=== PATIENT | male | born 1955 | race Caucasian/White ===

== ENCOUNTER 2024-10-26 07:49 | Emergency (ER) | payer MEDICARE ==
[~2024-10-26] VITALS: Ht 172.7 cm; Wt 104.8 kg
--- NOTE | 2024-10-26 08:05 | NUR ---
EN-ROUTE TO CT SCAN
--- NOTE | 2024-10-26 08:12 | NUR ---
JUST RETURNED FROM CT SCAN
--- NOTE | 2024-10-26 08:15 | ERN ---
General Chief Complaint: Slurred Speech Stated Complaint: SLURRED SPEECH AT 0630 Time Seen by MD: 07:52 Source: patient, family History of Present Illness Initial Comments PATIENT IS A 69-YEAR-OLD MALE COMING IN TO BE EVALUATED FOR SLURRED SPEECH. PER PATIENT FELL ASLEEP BUT CENTER O'CLOCK IN A GOOD STATE OF MIND. PER PATIENT HE HAS BEEN GETTING UP TO GO TO THE RESTROOM SEVERAL TIMES IN HIS STATES HE WAS VERY TIRED THIS IS WHY HE HAD THESE SYMPTOMS. BUT STATES THAT HE WAS RELUCTANT TO COME TO THE HOSPITAL. HE HAD AN EPISODE WHERE HE HAD SLURRED SPEECH AT 6:30 A.M. WHICH IMPROVED BUT DID NOTICED A MILD RIGHT-SIDED WEAKNESS IN HIS FACE. Allergies: Coded Allergies: Penicillins (Unverified Allergy, Unknown, 10/26/24) Past Medical History Past Medical History: A-Fib, Heart Disease, Hypertension Past Surgical History: Other Surgical History Other: BILATERAL KNEES ROS Dictation CONSTITUTIONAL: NO CHILLS, NO FEVER, NO WEAKNESS, NO DIAPHORESIS, NO MALAISE. HEAD/FACE: NO SIGNS OF TRAUMA. EENT: NO EYE PAIN, NO BLURRED VISION, NO TEARING, NO DOUBLE VISION, NO EAR PAIN, NO EAR DISCHARGE, NO NOSE PAIN, NO NASAL CONGESTION, NO THROAT PAIN, NO THROAT SWELLING, NO MOUTH PAIN. RESPIRATORY: NO COUGH, NO ORTHOPNEA, NO SOB, NO STRIDOR, NO WHEEZING. CARDIOVASCULAR: NO CHEST PAIN, NO EDEMA, NO PALPITATIONS, NO SYNCOPE. GASTROINTESTINAL/ABDOMINAL: NO ABDOMINAL PAIN, NO CONSTIPATION, NO DIARRHEA, NO NAUSEA, NO VOMITING. GENITOURINARY: NO ABNORMAL DISCHARGE, NO DYSURIA, NO FREQUENT URINATION, NO HEMATURIA. NO COMPLAINTS OF PAIN IN THE GENITALS. MUSCULOSKELETAL: NO BACK PAIN, NO GOUT, NO JOINT PAIN, NO JOINT SWELLING, NO MUSCLE PAIN, NO MUSCLE STIFFNESS, NO NECK PAIN. INTEGUMENTARY: NO CHANGE IN COLOR, NO CHANGE IN HAIR/NAILS, NO DRYNESS, NO LESION, NO LUMPS, NO RASH. NEUROLOGICAL/PSYCH: NO ANXIETY, NOT DEPRESSED, NO EMOTIONAL PROBLEM, NO HEADACHE, NO NUMBNESS, NO PRE-EXISTING DEFICIT, NO HISTORY OF SEIZURES, NO TREMORS, NO WEAKNESS. HEMATOLOGIC/LYMPHATIC: NOT ANEMIC, NO HISTORY OF BLOOD CLOTS, NO APPARENT BLEEDING, NO BRUISING, GLANDS NOT SWOLLEN. ALL SYSTEMS NEGATIVE, EXCEPT NOTED. Physical Exam Physical Exam Dictation VITAL SIGNS: REVIEWED. GENERAL APPEARANCE: ALERT, ORIENTED X3, NO ACUTE DISTRESS, OBESE. HEAD AND FACE: NON-TRAUMATIC. EYES: PERRL, PINK CONJUNCTIVAS, EYELID NO TRAUMA, ANTERIOR CHAMBER CLEAR. EARS: PINNAS INTACT AND NO SIGNS OF TRAUMA OR ERYTHEMA. EAR CANALS CLEAR AND NO DISCHARGE. TMS NO ERYTHEMA. NOSE: NO DISCHARGE, NO BLEEDING. OROPHARYNX: MOUTH NORMAL, TEETH NO CARIES, TONGUE PINK. PHARYNX CLEAR, NO ERYTHEMA. TONSILS NO EXUDATES, NO ABSCESSES NOTED. MUCOUS MEMBRANE MOIST. NECK: SUPPLE, NON-TENDER, NO THYROMEGALY, NO MASSES, NO JVD, NO BRUITS. BREAST: DEFERRED. CHEST: NO TENDERNESS, NO CREPITUS, NO PARADOXICAL MOVEMENT, NO RETRACTIONS. LUNGS: CLEAR, WELL-VENTILATED, SYMMETRIC, NO RALES, NO WHEEZING, NO RHONCHI, NO STRIDOR, GOOD BREATH SOUNDS BILATERALLY. HEART: REGULAR RATE, REGULAR RHYTHM, NO MURMUR, NO GALLOPS. VASCULAR: NO PERIPHERAL EDEMA. ABDOMEN: SOFT, POSITIVE BOWEL SOUNDS, NONDISTENDED, NO GUARDING, NONTENDER, NO REBOUND, NO MASSES NO HEPATOMEGALY, NO SPLENOMEGALY, NO WEST'S SIGN, NO HERNIAS. RECTAL: DEFERRED. GENITAL: DEFERRED. NEUROLOGICAL: NORMAL SPEECH, GROSS MOTOR FUNCTION INTACT, GROSS SENSORY FUNCTION INTACT. MUSCULOSKELETAL: NECK NONTENDER, FULL RANGE OF MOTION, BACK NONTENDER, FULL RANGE OF MOTION. EXTREMITIES: NONTENDER, FULL RANGE OF MOTION. SKIN: COLOR PINK, DRY, NO TURGOR, NO RASH, NO LACERATIONS, NO ABRASIONS, NO CONTUSIONS. LYMPHATICS: DEFERRED. Results Laboratory and Microbiology Lab and Micro Result Laboratory Tests Test 10/26/24 08:15 10/26/24 08:42 Urine Color COLORLESS (YELLOW) Urine Appearance CLEAR (CLEAR) Urine pH 7.0 (5.0-8.0) Urine Specific [place] 1.003 (1.001-1.031) Urine Protein 100 mg/dL (NEGATIVE) H Urine Glucose (UA) NEGATIVE mg/dL (NEGATIVE) Urine Ketones NEGATIVE mg/dL (NEGATIVE) Urine Occult Blood NEGATIVE (NEGATIVE) Urine Nitrate NEGATIVE (NEGATIVE) Urine Bilirubin NEGATIVE mg/dL (NEGATIVE) Urine Urobilinogen 0.2 mg/dL (0.2-1.0) Urine Leukocyte Esterase NEGATIVE Lizabeth/uL Urine RBC None /HPF (0-1) Urine WBC 0-1 /HPF (0-1) Urine Bacteria None /HPF (None Seen) White Blood Count 5.5 K/uL (4.8-10.8) Red Blood Count 5.61 MIL/uL (4.50-6.20) Hemoglobin 18.6 g/dL (14.0-18.0) H Hematocrit 54.6 % (42-54) H Mean Corpuscular Volume 97.3 fL (79-99) Mean Corpuscular Hemoglobin 33.2 pg (27.0-33.0) H Mean Corpuscular Hemoglobin Concent 34.1 g/dL (32.0-36.0) Red Cell Distribution Width 14.2 % (11.0-15.5) Platelet Count 147 K/uL (130-400) Mean Platelet Volume 11.1 fL (7.5-10.5) H Immature Granulocyte % (Auto) 0.4 % (0-1) Neutrophils (%) (Auto) 61.6 % (40.0-77.0) Lymphocytes (%) (Auto) 19.8 % (21.0-51.0) L Monocytes (%) (Auto) 11.2 % (3.0-13.0) Eosinophils (%) (Auto) 5.9 % (0.0-8.0) Basophils (%) (Auto) 1.1 % (0.0-5.0) Neutrophils # (Auto) 3.4 K/uL (1.8-7.7) Lymphocytes # (Auto) 1.1 K/uL (1.0-4.8) Monocytes # (Auto) 0.6 K/uL (0.1-1.0) Eosinophils # (Auto) 0.32 K/uL (0.00-0.70) Basophils # (Auto) 0.06 K/uL (0.00-0.20) Absolute Immature Granulocyte (auto 0.02 K/uL (0-1) Nucleated Red Blood Cells 0.0 % (0.0-0.19) Prothrombin Time 11.1 SEC (9.6-11.6) Prothromb Time International Ratio 1.05 (0.85-1.15) Activated Partial Thromboplast Time 27.1 SEC (26.3-35.5) Sodium Level 139 mmol/L (136-145) Potassium Level 3.6 mmol/L (3.5-5.1) Chloride Level 102 mmol/L (101-111) Carbon Dioxide Level 33 mmol/L (21-32) H Blood Urea Nitrogen 14 mg/dL (7-18) Creatinine 1.0 mg/dL (0.5-1.3) Glomerular Filtration Rate Calc 81 mL/min (>90) Random Glucose 107 mg/dL (70-105) H Total Calcium 9.1 mg/dL (8.5-10.1) Total Creatine Kinase 114 U/L (21-232) Troponin I High Sensitivity 7 ng/L (4-75) B-Type Natriuretic Peptide 150 pg/mL (0-100) H LDL Cholesterol 134 mg/dL (0-99) H Labs Reviewed?: Yes EKG/XRAY/US/CT/MRI X-RAY Comment [id number] [address] IMAGING REPORT Signed PATIENT: DENA MILLER MR#: [id number] : 1955 SEX: M AGE: 69 LOCATION: ED ORDER 6 STATUS: REG HOSPITAL REPORT#: [id number] SERVICE [id number] REASON: WEAKNESS ORDERING PHYSICIAN: DELVIS AVILES MD PROCEDURE: CXR1VW - CHEST 1VW CHEST 1VW HISTORY: CVA COMPARISON: None FINDINGS: A frontal projection of the chest was obtained. Mild bilateral pulmonary infiltrates are seen may be related to mild pulmonary vascular congestion with possible superimposed pneumonitis. The heart is enlarged. Degenerative changes are seen. No evidence of aortic calcification is seen. IMPRESSION: 1. Mild bilateral pulmonary infiltrates are seen may be related to mild pulmonary vascular congestion with possible superimposed pneumonitis. DICTATED BY: EMLIZA CARRENO MD DATE: 10/26/24941 ELECTRONICALLY SIGNED BY: MELIZA CARRENO MD DATE: 10/26/[address] Scan Comment IMAGING REPORT Signed PATIENT: DENA MILLER MR#: [id number] : 1955 SEX: M AGE: 69 LOCATION: EDH ORDER 6 STATUS: REG ER REPORT#: [id number] SERVICE 5 REASON: RIGHT FACIAL WEAKNESS ORDERING PHYSICIAN: DELVIS AVILES MD PROCEDURE: HEAD WO - CT HEAD/BRAIN W/O CONTRAST CT HEAD/BRAIN W/O CONTRAST HISTORY: Code stroke COMPARISON: None TECHNIQUE: Multiple sequential axial images of the head were obtained from the base of the skull through vertex. Patient was not given contrast through intravenous route. FINDINGS: The ventricles and extraventricular CSF spaces are dilated consistent with cerebral atrophy. Nonspecific white matter changes seen. There is right maxillary sinus polyp versus mucus retention cyst. There is no midline shift, mass effect or herniation. No acute intracranial bleed is seen. Visualized portion of the paranasal sinuses are grossly within normal limits. IMPRESSION: 1. No acute intracranial bleed is seen. CT was performed with one or more following dose reduction techniques: automated exposure control, adjustment of the mA and kv according to patient's size, or use of a iterative reconstruction technique. DICTATED BY: MELIZA CARRENO MD DATE: 10/26/24836 ELECTRONICALLY SIGNED BY: MELIZA CARRENO MD DATE: 10/26/24840 [facility] MDM: DIFFERENTIAL DIAGNOSIS: TIA, CVA, RATIONALE: TESTS CONSIDERED AND ORDERED SECONDARY TO SHARED DECISION MAKING INCLUDE: LABS, ECG AND RADIOLOGY PREVIOUS OUTSIDE RECORDS REVIEWED: OLD ER VISITS. RISK OF COMPLICATION AND/OR MORBIDITY OR MORTALITY OF PATIENT MANAGEMENT: NONE MEDICATIONS-PER MEDICATION RECONCILIATION NEED FOR HOSPITALIZATION: PATIENT DOES MEET CRITERIA FOR HOSPITALIZATION. NEED FOR EMERGENCY MAJOR/MINOR SURGERY: NO THERE ARE NO SOCIAL CONCERNS WITH THIS PATIENT. PRESCRIPTION DRUG MANAGEMENT PRESCRIPTIONS WILL INCLUDE SYMPTOMATIC CARE PATIENT'S PRIOR EXTERNAL MEDICAL RECORDS FROM OTHER ER VISITS WERE REVIEWED BY ME INDICATED. PRIOR TESTING AND RESULTS FROM PREVIOUS VISITS WERE REVIEWED. PRIOR TESTS WERE TAKEN INTO ACCOUNT WITH MEDICAL DECISION MAKING AND RESOURCE UTILIZATION, INDEPENDENT HISTORIAN/HISTORIANS WERE USED TO OBTAIN COMPLETE MEDIC AL HISTORY. I INDEPENDENTLY INTERPRETED THE TEST THAT WERE PERFORMED, RESULTS WERE REVIEWED BY ME AND CONSIDERED FINDINGS ON RADIOLOGY IF ORDERED. MEDICAL MANAGEMENT AND EXAMINATION INTERPRETATION DISCUSSIONS WERE HAD BY ME WITH OTHER QUALIFIED HEALTHCARE PROFESSIONALS INDICATED FOR THE PATIENT'S CARE. Patient is a 69-year-old male coming in to be evaluated for neurological symptoms. CT did not disclose acute findings in the brain. I advised patient that he needs to be transferred to center neurologist could intervene as we are going to go to with our teleneurologist recommendation which was two admit the patient for further workup. Patient refused states he did not know why he was brought in the 1st place because he was feeling fine. Despite my efforts patient states he does not want to stay and wishes to leave patient is neurologically intact nose reason that and at bedside confirms that patient is at baseline. Patient will leave against medical advice I also recommended if symptoms resurface or he needs a emergent medical evaluation to seek help with the nearest ER. He agrees. ED Course Orders Procedure Category Date Status Time Cbc With Differential LAB 10/26/24 Complete 07:56 Prothrombin Time With LAB 10/26/24 Complete INR 07:56 Partial LAB 10/26/24 Complete Thromboplastin Time 07:56 Ct Head/Brain W/O CT 10/26/24 Resulted Contrast 07:56 Chest 1vw RAD 10/26/24 Resulted 07:56 12 Lead Ekg Tracing- EKG 10/26/24 Logged Technical 07:56 Creatine Kinase, Total LAB 10/26/24 Complete 07:56 Ldl Direct LAB 10/26/24 Complete 07:56 Troponin I High LAB 10/26/24 Complete Sensitivity 07:56 Urinalysis Profile LAB 10/26/24 Complete 07:56 B-Type Natriuretic LAB 10/26/24 Complete Peptide 07:56 Bedside Glucose CPOE 10/26/24 Transmitted Fingerstick 07:56 Basic Metabolic Panel LAB 10/26/24 Complete 07:56 Vital Signs Date Time Temp Pulse Resp B/P (MAP) Pulse Ox O2 Delivery O2 Flow Rate FiO2 10/26/24 10:01 97.9 63 20 143/94 97 Room Air* 0 21 10/26/24 08:42 68 18 197/110 98 Room Air* 0 21 10/26/24 07:58 78 17 187/120 96 Room Air* 0 21 10/26/24 07:55 97.9 70 16 176/106 94 Room Air 0 DX & DISP Disposition: AMA Departure Impression: Primary Impression: TIA (transient ischemic attack) Additional Impression: CVA (cerebral vascular accident) Condition: Against Medical Advice Additional Instructions: Patient left against medical advice. DELVIS AVILES MD Oct 26, 2024 08:15
--- NOTE | 2024-10-26 08:17 | NUR ---
TELE NEURO: SOC JUST LOGGED ON AND IS SPEAKING W/THE PT FOR THEIR ASSESSMENT
--- NOTE | 2024-10-26 08:29 | NUR ---
HX: AFIB, CAD, HTN, BILATERAL KNEE SURGERY
--- NOTE | 2024-10-26 08:35 | NUR ---
REPORT WAS ENDORSED TO MELLY GUZMÁN AND PT MOVED OVER INTO ED BED 5
--- NOTE | 2024-10-26 08:41 | HMCIMG ---
CT HEAD/BRAIN W/O CONTRAST HISTORY: Code stroke COMPARISON: None TECHNIQUE: Multiple sequential axial images of the head were obtained from the base of the skull through vertex. Patient was not given contrast through intravenous route. FINDINGS: The ventricles and extraventricular CSF spaces are dilated consistent with cerebral atrophy. Nonspecific white matter changes seen. There is right maxillary sinus polyp versus mucus retention cyst. There is no midline shift, mass effect or herniation. No acute intracranial bleed is seen. Visualized portion of the paranasal sinuses are grossly within normal limits. IMPRESSION: 1. No acute intracranial bleed is seen. CT was performed with one or more following dose reduction techniques: automated exposure control, adjustment of the mA and kv according to patient's size, or use of a iterative reconstruction technique.
--- NOTE | 2024-10-26 08:45 | CONS ---
CONSULTATION NOTE DATE OF CONSULTATION: 10/26/24 REASON FOR CONSULTATION: [place] [facility] Note # Demographics Consult Type: Acute Stroke Level 1 (0-4.5 hrs) Patient Location: Emergency Room First Name: Jerry Last Name: Elsa Date of : 1955 Age: 69 Gender: Male Facility: [facility] Time of Initial Page (Central Time): 10/26/2024 07:57 Time of Return Call (Central Time): 10/26/2024 07:57 # HPI History: Patient reportedly drooled on his shirt, reportedly in the setting of taking medication this morning. Patient reported that he felt at his neurolo gical baseline currently. Possible Thrombolytic candidate: - no intracranial hemorrhage history - no stroke in last 3 months - on warfarin or NOAC Xarelto with last dose last night # Scores Time of exam and NIHSS (Central Time): 10/26/2024 08:17 Level of Consciousness 1a: [0] = Alert; keenly responsive LOC Questions 1b: [0] = Answers both questions correctly LOC Commands 1c: [0] = Performs both tasks correctly Best Gaze 2: [0] = Normal Visual 3: [0] = No visual loss Facial Palsy 4: [0] = Normal symmetrical movements Motor Arm Left 5a: [0] = No drift Motor Arm Right 5b: [0] = No drift Motor Leg Left 6a: [0] = No drift Motor Leg Right 6b: [0] = No drift Limb Ataxia 7: [0] = Absent Sensory 8: [0] = Normal Best Language 9: [0] = No aphasia Dysarthria 10: [0] = Normal Extinction and Inattention 11: [0] = No abnormality NIHSS Total: 0 # Exam SBP: 176 DBP: 106 Mental Status: - alert and oriented x 3 - follows commands - awake Additional Neurologic Exam: Evaluation limited due to observational assessment. In-person exam may be helpful for more subtle signs that cannot be detected via telemedicine. # PMH-FH-SH Past Medical History: - A-fib Social History: non-smoker Medications: - NOAC - lipid lowering agent # Data Head CT: - no bleed - preliminarily reviewed by me, please refer to radiology read for official reading # Assessment Impression: - Ischemic Stroke (Acute) - Transient Ischemic Attack - Stroke Mimic # Plan Thrombolytic/Intervention: NOT IV Thrombolysis or IA Intervention candidate Thrombolytic Exclusion (< 3 hour window): - actively on NOAC - NIHSS = 0 Thrombolytic Exclusion: Patient reported that he was at his neurological baseline during current tele- evaluation Intraarterial Exclusion: - clinical exam not consistent with presence of large vessel occlusion (LVO), can reconsider if LVO found on vascular imaging Blood Pressure Management: Avoid hypotension to maintain cerebral perfusion pressure (i.e., consider maintaining head of bed flat as tolerated pending CTA head results) Target Blood Pressure: SBP < 220 Labs: - CBC - hemoglobin A1c - lipid panel - ESR - comprehensive metabolic panel - troponin - TSH - urine drug screen - ua Further toxic/ metabolic/ infectious etiologies evaluation & management as per referring service Imaging: (urgency: STAT): - CT Angiogram Head and CT Angiogram Neck AND call back with results if abnormal Imaging: (urgency: routine): - MRI Brain without contrast If no medical contraindication Diagnostic Test: - echo without bubble study Therapy/Evaluation: - NPO until swallow evaluation - PT/OT evaluation - speech/swallow consultation Medication: Given unclear etiology, referring ER Physician can consider deferring starting antiplatelet therapy pending brain MRI results Other: - telemetry monitoring - permissive hypertension - will need event monitor or loop recorder as outpatient if atrial fibrillation not found as inpatient - callback neurology if brain imaging reveals moderate to large cerebellar infarct - neurology referral as outpatient Continued medical evaluation & management as per referring service - If patient has any neurological deterioration please place Follow-up Phone Call Consult (indicating urgency of request in Notes & with STAT head CT results) for on-call teleprovider callback & further discussion - Discussed with referring ER Physician Dr. AVILES Additional Recommendations: Thank you for allowing us to participate in your patient's care. # Logistics Attestation of consult completion: The patient is located at: [facility]. Facility staff participated in the visit. I performed this telemedicine visit from my offsite office utilizing interactive 2 way audio and visual telecommunication technology. Consent: Verbal consent was obtained from the patient and/or family for this encounter. Total time spent in telemedicine encounter: I spent 30 minutes reviewing clinical data and/or imaging, obtaining history, examining the patient, communicating with the onsite care team, and in preparation of this report. # Demographics First Name: Jerry Last Name: Elsa Facility: [facility] ALLERGIES: Coded Allergies: Penicillins (Unverified Allergy, Unknown, 10/26/24) VITAL SIGNS Vital Signs Date Time Temp Pulse Resp B/P (MAP) Pulse Ox O2 Delivery O2 Flow Rate FiO2 10/26/24 08:42 68 18 197/110 98 Room Air* 0 21 10/26/24 07:58 78 17 187/120 96 Room Air* 0 21 10/26/24 07:55 97.9 70 16 176/106 94 Room Air 0 GASTON AWAN MD Oct 26, 2024 08:45
--- NOTE | 2024-10-26 08:47 | NUR ---
TRANSFER REQUES TO IN PERSON NEUROLOGIST PER DG SARAVIA RN
[2024-10-26 09:26] LABS: APPEARANCE,URINE CLEAR (CLEAR); BILIRUBIN,URINE NEGATIVE (NEGATIVE); COLOR,URINE COLORLESS (YELLOW); GLUCOSE, URINE (UA) NEGATIVE (NEGATIVE); KETONES,URINE NEGATIVE (NEGATIVE); LEUKOCYTE ESTERASE ,URINE NEGATIVE Leu/uL (NEGATIVE); NITRATE,URINE NEGATIVE (NEGATIVE); OCCULT BLOOD,URINE NEGATIVE (NEGATIVE); PROTEIN,URINE 100 mg/dL (NEGATIVE); UROBILINOGEN,URINE 0.2 mg/dL (0.2-1.0)
[2024-10-26 09:35] LABS: BASOPHILS # (AUTO) 0.06 K/uL (0.00-0.20); BASOPHILS % (AUTO) 1.1 % (0.0-5.0); EOSINOPHILS # (AUTO) 0.32 K/uL (0.00-0.70); EOSINOPHILS % (AUTO) 5.9 % (0.0-8.0); HEMATOCRIT 54.6 % (42-54); IMMATURE GRANULOCYTE ABSOLUTE 0.02 K/uL (0-1); LYMPHOCYTES # (AUTO) 1.1 K/uL (1.0-4.8); LYMPHOCYTES % (AUTO) 19.8 % (21.0-51.0); MEAN CORPUSCULAR HEMOGLOBIN 33.2 pg (27.0-33.0); MEAN CORPUSCULAR HGB CONC 34.1 g/dL (32.0-36.0); MEAN CORPUSCULAR VOLUME 97.3 fL (79-99); MONOCYTES # (AUTO) 0.6 K/uL (0.1-1.0); MONOCYTES % (AUTO) 11.2 % (3.0-13.0); NEUTROPHILS # (AUTO) 3.4 K/uL (1.8-7.7); NEUTROPHILS % (AUTO) 61.6 % (40.0-77.0); PLATELET COUNT (AUTO) 147 K/uL (130-400); RED BLOOD CELL COUNT(AUTO) 5.61 MIL/uL (4.50-6.20); RED CELL DISTRIBUTION WIDTH 14.2 % (11.0-15.5); WHITE BLOOD COUNT (AUTO) 5.5 K/uL (4.8-10.8)
[2024-10-26 09:38] LABS: ADD UA MICROSCOPIC YES
[2024-10-26 09:50] LABS: POTASSIUM 3.6 mmol/L (3.5-5.1)
--- NOTE | 2024-10-26 09:55 | NUR ---
TRANSFER REQEUST CALL PLACE TO [facility] [phone] SPOKE WITH JORGE INFORMATION PROVIDED AND WILL CALL BACK. DG GUZMÁN
[2024-10-26 09:56] LABS: WBC,URINE 0-1 /HPF (0-1)
[2024-10-26 10:01] VITALS: BP 143/94; PULSE 63; RESP 20; TEMP 97.9; O2SAT 97
--- NOTE | 2024-10-26 10:08 | NUR ---
1005 PT VERY RESTLESS AND UPSET, STATES HE HIS BLOOD PRESSURE IS BETTER, STATES HE FEELS BETTER, HE WANTS TO GO HOME STATES THERE IS NO REASON TO BE HERE. STATES PT IS ANGRY WITH HER, IS INSISTANT TO GO HOME, STATED SHE WANTS HIM TO STAY. INFORMED DR AVILES, SPOKE THE PT AND AT BEDSIDE EXPLAINED RISKS IF PT LEAVES, AND REASONS FOR PT TO STAY TO CONTINUE CARE. PT AGAIN STATED HE WANT TO LEAVE NOW HE KNOWS THE RISK HE IS TAKING IF HE LEAVES STATES HE IS FINE HE FEELS BETTER DOESNT WANT TO STAY. IV REMOVED CATHETER INTACT. PT SIGNED AMA AT BEDSIDE WITH PRESENT. PT DRESSED HIMSELF AND TAKEN OUT TO CAR IN W/C DRIVEN HOME BY .
[2024-10-26 10:16] LABS: B-TYPE NATRIURETIC PEPTIDE 150 pg/mL (0-100)
--- NOTE | 2024-10-26 10:16 | NUR ---
AGAINST MEDICAL ADVICE: I SPOKE TO PT AND HIS SPOUSE IN REFERENCE TO HIS RISKS (CONS)OF LEAVING AGAINST MEDICAL ADVICE W/HIS PRESENTING SYMPTOMS AND VITAL SIGNS. DESPITE SPEAKING TO AND ENCOURAGING PT TO STAY TO GET NEUROLOGICALLY CLEARED/TRANSFERRED, HE IS ADAMENT ABOUT LEAVING. I DID INSTRUCT THE SPOUSE THAT PRIOR TO LEAVING FOR [place] NEXT WEEK, TO COME TO THE HOSPITAL TO GET COPIES OF HIS RECORDS AND ESPECIALLY CD ROM. PT SPOUSE TEARFUL AND FEARFUL FOR PT AND HIS INCREASED RISKS. I ALSO INFORMED BOTH FOR THEM TO RETURN FOR ANY NEW OR WORSNEING SYMPTOMS TO A EMERGENCY ROOM.
--- NOTE | 2024-10-26 10:17 | HMCIMG ---
CHEST 1VW HISTORY: CVA COMPARISON: None FINDINGS: A frontal projection of the chest was obtained. Mild bilateral pulmonary infiltrates are seen may be related to mild pulmonary vascular congestion with possible superimposed pneumonitis. The heart is enlarged. Degenerative changes are seen. No evidence of aortic calcification is seen. IMPRESSION: 1. Mild bilateral pulmonary infiltrates are seen may be related to mild pulmonary vascular congestion with possible superimposed pneumonitis.
[2024-10-26 10:18] LABS: INR 1.05 (0.85-1.15); PROTHROMBIN TIME 11.1 SEC (9.6-11.6)
[2024-10-26 10:20] LABS: PARTIAL THROMBOPLASTIN TIME 27.1 SEC (26.3-35.5)
--- NOTE | 2024-10-26 10:25 | NUR ---
TRANSFER CENTER INTAKE NURSE JORGE WAS NOTIFIED OF TRANSFER WITHDRAWN DUE TO PT LEFT AMA VERBLIZED UNDERSTANDING. DG GUZMÁN
--- NOTE | 2024-10-26 15:44 | EKG ---
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
== END 2024-10-26 10:17 | disposition left against medical advice (07) ==
LOC: EDH 07:49
DX: G45.9 Transient cerebral ischemic attack, unspecified (principal); I63.9 Cerebral infarction, unspecified; I10 Essential (primary) hypertension; I48.91 Unspecified atrial fibrillation; Z79.01 Long term (current) use of anticoagulants; Z88.0 Allergy status to penicillin
CPT/HCPCS: 36415; 70450; 71045; 80048; 81001; 82550; 83721; 83880; 84484; 85025; 85610; 85730; 93005; 99285